=== PATIENT | male | born 1985 | race Two or more races ===

== ENCOUNTER 2016-03-26 17:25 | Emergency (ER) | payer MEDICAID ==
[~2016-03-26] VITALS: Ht 193 cm; Wt 75.7 kg
[2016-03-27 08:03] VITALS: BP 138/86
== END 2016-03-27 08:13 | disposition home or self-care (01) ==
LOC: ER 17:32
DX: S09.11XA Strain of muscle and tendon of head, initial encounter (principal); X58.XXXA Exposure to other specified factors, initial encounter; Y93.89 Activity, other specified; Y99.8 Other external cause status; Y92.89 Other specified places as the place of occurrence of the external cause
CPT/HCPCS: 70450

== ENCOUNTER 2018-09-22 16:50 | Emergency (ER) | payer MEDICAID ==
[~2018-09-22] VITALS: Ht 205.7 cm; Wt 72.6 kg
[2018-09-22 16:56] VITALS: BP 113/81
[2018-09-22] MEDS ORDERED: SODIUM CHLORIDE 0.9% 500 ML IV ONE (16:56)
[2018-09-22 17:43] LABS: Basophils # (auto) 0 uL; Basophils % (auto) 0.3 % (0.0-2.0); Eosinophils # (auto) 0 uL; Eosinophils % (auto) 0.4 % (0.0-7.0); Hematocrit 40.7 % (41.0-53.0); Hemoglobin 13.7 g/dL (13.5-17.5); Lymphocytes # (auto) 0.7 uL; Mean Corpuscular Hemoglobin 30.2 pg (28.0-32.0); Mean Corpuscular Hgb Conc. 33.6 g/dL (32.0-36.0); Monocytes # (auto) 0.3 uL; Monocytes % (auto) 2.8 % (0.0-12.0); Neutrophils % (auto) 90.5 % (37.0-80.0); Platelet Count (auto) 233 10^3/uL (140-450); Red Blood Cells 4.52 10^6/uL (4.5-5.90); Red Cell Distribution Width 13.9 % (11.8-14.3); White Blood Cell 11.1 10^3/uL (4.4-10.8)
[2018-09-22 18:04] LABS: Albumin 3.8 g/dL (3.4-5.0); Anion Gap 7 (5-15); Blood Urea Nitrogen 11 mg/dL (7-18); Calcium 8.4 mg/dL (8.5-10.1); Carbon Dioxide 26 mmol/L (21-32); Chloride 111 mmol/L (98-107); Glucose 149 mg/dL (74-106); Magnesium 2.2 mg/dL (1.6-2.6); Potassium 3.3 mmol/L (3.5-5.1); Sodium 144 mmol/L (136-145)
[2018-09-22 18:09] LABS: Alanine Aminotransferase 12 U/L (16-61); Alkaline Phosphatase 47 U/L (45-117); Aspartate Aminotransferase 13 U/L (15-37); BUN/Creatinine Ratio 9.7; Bilirubin, Total 1.4 mg/dL (0.2-1.0); GFR African American 96 mL/min; GFR Non-African American 79 mL/min; Total Protein 6.3 g/dL (6.4-8.2)
== END 2018-09-22 18:39 | disposition home or self-care (01) ==
LOC: EDBD 16:50 → ER 16:52
DX: R07.89 Other chest pain (principal); F17.210 Nicotine dependence, cigarettes, uncomplicated
CPT/HCPCS: 36415; 71045; 80053; 83735; 84484; 85025; 93005; 94761